=== PATIENT | male | born 1950 | race Caucasian/White ===

== ENCOUNTER → 2017-02-16 | Outpatient (CLI) | payer MEDICARE, OTHER ==
[~2017-02-16] MED LIST: ACYC-114 PO; FENTANYL PF 100 MCG/2ML ONE; HEPARIN 1,000 UNITS/ML, 10ML ONE; LIDOCAINE 2%, 20ML ONE; MIDAZOLAM 1 MG/ML, 2ML ONE; NITROGLYCERIN 5 MG/ML, 10ML ONE; OMEP20TA62 PO; SIMV20TA3 PO; VERAPAMIL 2.5 MG/ML, 2ML ONE
[2017-02-16 11:24] LABS: BASOPHILS # (AUTO) 0.08 x10^3/uL (0-0.1); BASOPHILS % (AUTO) 1 % (0-1); EOSINOPHILS # (AUTO) 0.41 x10^3/uL (0-0.4); EOSINOPHILS % (AUTO) 5 % (1-7); LYMPHOCYTES # (AUTO) 1.42 x10^3/uL (1-3.4); LYMPHOCYTES % (AUTO) 16 % (22-44); MD NO; MEAN CORPUSCULAR HEMOGLOBIN 28.1 pg (27.5-34.5); MEAN CORPUSCULAR HGB CONC 33.8 g/dL (33.2-36.2); MEAN CORPUSCULAR VOLUME 83.1 fL (81-97); MEAN PLATELET VOLUME 7.8 fL (7.4-10.4); MONOCYTES # (AUTO) 0.86 x10^3/uL (0.2-0.8); MONOCYTES % (AUTO) 9 % (2-9); NEUTROPHILS # (AUTO) 6.42 x10^3/uL (1.8-6.8); NEUTROPHILS % (AUTO) 70 % (42-75); PLATELET COUNT 208 x10^3/uL (130-400); RED BLOOD COUNT 5.94 x10^6/uL (4.38-5.82); RED CELL DISTRIBUTION WIDTH 14.1 % (9.4-14.8)
[2017-02-16 11:34] LABS: ANION GAP 5 mmol/L (5-15); CALCIUM 8.6 mg/dL (8.5-10.1); CHLORIDE 106 mmol/L (98-107); CREATININE 0.97 mg/dL (0.7-1.3)
== END | disposition home or self-care (01) ==
LOC: STAR 10:35
PROVIDERS: ATTEND Internal Medicine Cardiovascular Disease
DX: Z01.818 Encounter for other preprocedural examination (principal); G47.30 Sleep apnea, unspecified; I34.1 Nonrheumatic mitral (valve) prolapse; R53.83 Other fatigue; I10 Essential (primary) hypertension
CPT/HCPCS: 36415; 80048; 85025

== ENCOUNTER 2017-02-20 08:00 | Day surgery (SDC) | payer MEDICARE, OTHER ==
[2017-02-16 11:14] VITALS: BP 142/101
[~2017-02-20] VITALS: Ht 190.5 cm; Wt 97.7 kg
[~2017-02-20 08:00] MED LIST changes: -FENTANYL PF 100 MCG/2ML ONE; -HEPARIN 1,000 UNITS/ML, 10ML ONE; -LIDOCAINE 2%, 20ML ONE; -MIDAZOLAM 1 MG/ML, 2ML ONE; -NITROGLYCERIN 5 MG/ML, 10ML ONE; -VERAPAMIL 2.5 MG/ML, 2ML ONE
[2017-02-20] MEDS ORDERED: FENTANYL PF 100 MCG/2ML ONE (10:36)
[2017-02-20] MEDS ORDERED: MIDAZOLAM 1 MG/ML, 2ML ONE (10:37)
== END 2017-02-20 15:00 ==
LOC: CACL 08:00
PROVIDERS: ATTEND Internal Medicine Cardiovascular Disease
DX: I25.10 Atherosclerotic heart disease of native coronary artery without angina pectoris (principal); Z88.0 Allergy status to penicillin
CPT/HCPCS: 93460; 99156; 99157; C1769; C1894; J2250; J3010; Q9967